=== PATIENT | male | born 1990 | race African-American/Black ===

== ENCOUNTER 2021-01-24 00:20 | Emergency (ER) | payer SELFPAY ==
[~2021-01-24] VITALS: Ht 188 cm; Wt 84.0 kg
[2021-01-24 00:41] VITALS: BP 126/90
[2021-01-24] MEDS ORDERED: LIDOCAINE HCL/EPINEPHRINE 1%-EPI 1:100,000 50 ML VIAL INFIL ONE (03:00)
[2021-01-24] MEDS ORDERED: BACITRACIN/POLYMYXIN B SULFATE OINT 15GM TOP ONE (04:15)
== END 2021-01-24 04:48 | disposition home or self-care (01) ==
LOC: ER 01:04
DX: S01.81XA Laceration without foreign body of other part of head, initial encounter (principal); S01.01XA Laceration without foreign body of scalp, initial encounter; Y04.0XXA Assault by unarmed brawl or fight, initial encounter; Y93.89 Activity, other specified; Y92.89 Other specified places as the place of occurrence of the external cause; Y99.8 Other external cause status
CPT/HCPCS: 12004; 12031; 99285; A4217; Z7610; 99282

== ENCOUNTER 2021-01-26 10:13 | Emergency (ER) | payer SELFPAY ==
[~2021-01-26] VITALS: Ht 188 cm; Wt 84.0 kg
[2021-01-26 10:24] VITALS: BP 128/84
== END 2021-01-26 12:35 | disposition home or self-care (01) ==
LOC: ER 10:13
DX: S01.01XD Laceration without foreign body of scalp, subsequent encounter (principal); X58.XXXD Exposure to other specified factors, subsequent encounter
CPT/HCPCS: 99281

== ENCOUNTER 2021-01-30 14:46 | Emergency (ER) | payer SELFPAY ==
[~2021-01-30] VITALS: Ht 188 cm; Wt 84.0 kg
[2021-01-30 17:27] VITALS: BP 129/74
== END 2021-01-30 17:28 | disposition home or self-care (01) ==
LOC: ER 14:46
DX: Z48.02 Encounter for removal of sutures (principal)
CPT/HCPCS: 99281

== ENCOUNTER 2021-05-19 19:03 | Emergency (ER) | payer MEDICAID ==
[~2021-05-19] VITALS: Ht 185.4 cm; Wt 81.0 kg
[2021-05-19 19:16] VITALS: BP 144/105
== END 2021-05-19 20:48 | disposition home or self-care (01) ==
LOC: ER 19:03
DX: Z20.822 Contact with and (suspected) exposure to COVID-19 (principal)
CPT/HCPCS: 87426; 99283